=== PATIENT | female | born 2000 | race Two or more races ===

== ENCOUNTER 2022-08-23 19:27 | Emergency (ER) | payer MEDICAID ==
[~2022-08-23] VITALS: Ht 160 cm; Wt 62.1 kg
[2022-08-23 19:47] VITALS: BP 141/90
[2022-08-23] MEDS ORDERED: IBUP800T26 PO (23:36)
[2022-08-23] MEDS ORDERED: KETOROLAC TROMETH 60MG/2ML VIAL IM ONE (23:45)
== END 2022-08-23 23:59 | disposition home or self-care (01) ==
LOC: ER 19:27
DX: R07.1 Chest pain on breathing (principal); F17.210 Nicotine dependence, cigarettes, uncomplicated
CPT/HCPCS: 71045; 96372; 99283; J1885

== ENCOUNTER 2024-11-20 14:42 | Emergency (ER) | payer MEDICAID, OTHER ==
[~2024-11-20] VITALS: Ht 160 cm; Wt 62.8 kg
[~2024-11-20 14:42] MED LIST: IBUP-1455 PO
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
[2024-11-20] MEDS ORDERED: NAPR-746 PO (17:07)
[2024-11-20] MEDS ORDERED: COROSUS RIGHT EAR (17:07)
[2024-11-20 17:13] VITALS: BP 130/87; PULSE 87; RESP 16; TEMP 98.9; O2SAT 98
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
== END 2024-11-20 17:17 | disposition home or self-care (01) ==
LOC: ER 14:42
DX: S29.012A Strain of muscle and tendon of back wall of thorax, initial encounter (principal); H60.91 Unspecified otitis externa, right ear; V49.88XA Car occupant (driver) (passenger) injured in other specified transport accidents, initial encounter; Y93.I9 Activity, other involving external motion; Y92.488 Other paved roadways as the place of occurrence of the external cause; Y99.8 Other external cause status
CPT/HCPCS: 72070